=== PATIENT | male | born 1945 | race Caucasian/White ===

== ENCOUNTER 2024-06-09 04:45 | Day surgery (SDC) | payer OTHER ==
[2024-05-06 14:44] VITALS: BMI 25.0
[2024-06-09 10:33] VITALS: TEMP 98.1
[2024-06-09 14:15] VITALS: BP 150/71; PULSE 58; RESP 18
== END 2024-06-09 13:30 | disposition home or self-care (01) ==
LOC: JASU-ENDO 04:45
PROVIDERS: ATTEND Internal Medicine Gastroenterology
PROC: 0DB78ZX Excision of Stomach, Pylorus, Via Natural or Artificial Opening Endoscopic, Diagnostic (ICD-10-PCS; 2024-06-09)
PROC: 0DJ08ZZ Inspection of Upper Intestinal Tract, Via Natural or Artificial Opening Endoscopic (ICD-10-PCS; 2024-06-09)
PROC: 0DB68ZX Excision of Stomach, Via Natural or Artificial Opening Endoscopic, Diagnostic (ICD-10-PCS; principal; 2024-06-09 12:00)
DX: C16.3 Malignant neoplasm of pyloric antrum (principal); K31.A22 Gastric intestinal metaplasia with high grade dysplasia; K29.50 Unspecified chronic gastritis without bleeding; K25.9 Gastric ulcer, unspecified as acute or chronic, without hemorrhage or perforation; K44.9 Diaphragmatic hernia without obstruction or gangrene; I10 Essential (primary) hypertension; E11.9 Type 2 diabetes mellitus without complications
CPT/HCPCS: 82962; 88305-TC; 88341-TC; 88342-TC

== ENCOUNTER 2024-06-23 04:19 | Day surgery (SDC) | payer OTHER ==
[2024-06-22 11:19] VITALS: BMI 25.0
[2024-06-23] MEDS ORDERED: BUPIVACAINE HCL/PF 0.25% (2.5MG/ML) 10 ML VIAL ONE (09:37)
[2024-06-23] MEDS ORDERED: PROPOFOL 20 ML ONE (09:47)
[2024-06-23] MEDS ORDERED: ROCURONIUM BROMIDE 50 MG/5 ML SYRINGE ONE (09:48)
[2024-06-23] MEDS ORDERED: ceFAZolin SODIUM 1 GM VIAL ONE (10:11)
[2024-06-23] MEDS: ceFAZolin SODIUM 1 GM VIAL IVPB ONE ×2 (10:13)
[2024-06-23] MEDS: BUPIVACAINE HCL/PF 0.25% (2.5MG/ML) 10 ML VIAL IJ ONE ×2 (10:23)
[2024-06-23] MEDS ORDERED: SUGAMMADEX SODIUM 200 MG/2 ML VIAL ONE (11:09)
[2024-06-23] MEDS ORDERED: ONDANSETRON 4 MG/2 ML VIAL ONE (11:09)
[2024-06-23] MEDS ORDERED: ONDANSETRON 4 MG/2 ML VIAL IVPUSH PRN (12:28)
[2024-06-23] MEDS ORDERED: LACTATED RINGERS SOLUTION 1,000 ML IV SCH (12:30)
[2024-06-23 14:06] VITALS: BP 130/70; PULSE 70; RESP 16; TEMP 97.7
== END 2024-06-23 14:12 | disposition home or self-care (01) ==
LOC: JASU-SURG 04:19
PROVIDERS: ATTEND Surgery
PROC: 3E1M48X Irrigation of Peritoneal Cavity using Irrigating Substance, Percutaneous Endoscopic Approach, Diagnostic (ICD-10-PCS; principal; 2024-06-23 10:30)
DX: C16.9 Malignant neoplasm of stomach, unspecified (principal)
CPT/HCPCS: 82962; 86850; 86900; 86901; 88108; 88305-TC; 94760

== ENCOUNTER 2024-07-07 03:53 | Inpatient (IN) | payer OTHER ==
[2024-07-07] MEDS ORDERED: ROCURONIUM BROMIDE 50 MG/5 ML SYRINGE ONE ×3 (10:39→16:41)
[2024-07-07] MEDS ORDERED: MIDAZOLAM HCL 2 MG/2 ML SINGLE DOSE VIAL ONE (10:40)
[2024-07-07] MEDS ORDERED: PROPOFOL 20 ML ONE (10:40)
[2024-07-07] MEDS ORDERED: SUCCINYLCHOLINE CHLORIDE 200 MG/10 ML SYRINGE ONE (10:40)
[2024-07-07] MEDS ORDERED: BUPIVACAINE HCL/PF 0.25% (2.5MG/ML) 10 ML VIAL ONE (10:42)
[2024-07-07 11:52] LABS: ARTERIAL BLD GAS O2 SATURATION 96.4 % (95-98); ARTERIAL BLOOD GAS BASE EXCESS 0.2 mmol/L (-2-2); ARTERIAL BLOOD GAS PO2 82.6 mmHg (80-100); ARTERIAL BLOOD GAS pH 7.421 (7.350-7.450)
[2024-07-07] MEDS ORDERED: cefOXitin SODIUM 2 GM VIAL (RESTRICTED TO ID) IVPB ONE ×2 (12:20→16:15)
[2024-07-07] MEDS ORDERED: HEPARIN NA (PORCINE) 5,000 UNITS/ML 1ML VIAL ONE (12:20)
[2024-07-07] MEDS: cefoTEtan DISODIUM 2 GM VIAL (RESTRICTED TO ID) IVPB ONE ×2 (12:24→16:24)
[2024-07-07] MEDS ORDERED: PHENYLEPHRINE HCL 10 MG/1 ML SINGLE DOSE VIAL ONE (12:35)
[2024-07-07] MEDS: BUPIVACAINE HCL/PF 0.25% (2.5MG/ML) 10 ML VIAL IJ ONE (12:36)
[2024-07-07] MEDS: cefOXitin SODIUM 1 GM VIAL (RESTRICTED TO ID) IVPB ONE (16:24)
[2024-07-07] MEDS ORDERED: HYDROmorphone HCl 2 MG/ML VIAL ONE (16:35)
[2024-07-07] MEDS ORDERED: TRANEXAMIC ACID 1000 MG/10 ML VIAL ONE (18:09)
[2024-07-07] MEDS ORDERED: NEOSTIGMINE METHYLSULFATE 0.5 MG/1 ML - 10 ML MDV ONE (20:37)
[2024-07-07] MEDS ORDERED: ONDANSETRON 4 MG/2 ML VIAL IVPUSH PRN (21:31)
[2024-07-07] MEDS: ACETAMINOPHEN 1000 MG/100 ML BAG IVPB ONE (21:40)
[2024-07-07] MEDS: ACETAMINOPHEN 1000 MG/100 ML BAG IVPB SCH (21:41)
[2024-07-07] MEDS ORDERED: METOCLOPRAMIDE HCL INJECTION 10 MG/2 ML VIAL ONE (22:02)
[2024-07-07] MEDS ORDERED: ONDANSETRON 4 MG/2 ML VIAL ONE (22:02)
[2024-07-07] MEDS: ONDANSETRON 4 MG/2 ML VIAL IVPUSH SCH (22:07)
[2024-07-07] MEDS: METOCLOPRAMIDE HCL INJECTION 10 MG/2 ML VIAL IVPUSH SCH (22:07)
[2024-07-07] MEDS: ATORVASTATIN CA 10 MG TABLET (FP) PO SCH (22:09)
[2024-07-07] MEDS: LACTATED RINGERS SOLUTION 1,000 ML IV SCH (22:09)
[2024-07-07] MEDS: INSULIN ASPART SLIDING SCALE (NOVOLOG) 1 VIAL SQ SCH (22:14)
[2024-07-08] MEDS: SIMETHICONE 80 MG TAB.CHEW (FP) PO PRN (01:18)
[2024-07-08] MEDS: CEFOXITIN SODIUM 2 GM in DEXTROSE 5%-WATER 100 ML IVPB SCH (01:18)
[2024-07-08] MEDS: TRANEXAMIC ACID 1000 MG/10 ML VIAL IVPUSH ONE (02:06)
[2024-07-08] MEDS: TRANEXAMIC ACID 1000 MG/10 ML VIAL IVPB SCH (02:07)
[2024-07-08] MEDS: oxyCODONE HCL 5 MG TABLET PO PRN ×3 (05:33→20:39)
[2024-07-08 09:31] LABS: BASO % 0.2 % (0-2.0); HEMATOCRIT 30.8 % (35.4-49); HEMOGLOBIN 10.1 GM/dL (11.7-16.9); LYMPH % 5.8 % (8-40); MCH 28.7 pg (25.7-33.7); MCHC 32.8 g/dl (32.0-35.9); MEAN CELL VOLUME 87.5 fl (80-96); MEAN PLT VOLUME 7.9 fl (7.5-11.1); PLATELET COUNT 183 10^3/uL (134-434); RBC 3.51 M/mm3 (4.00-5.60); RDW 15.6 % (11.9-15.9)
[2024-07-08 09:50] LABS: POTASSIUM 3.9 mmol/L (3.5-5.1)
[2024-07-08] MEDS: HEPARIN NA (PORCINE) 5,000 UNITS/ML 1ML VIAL SQ SCH (10:05)
[2024-07-08 10:13] LABS: BLOOD UREA NITROGEN 16.1 mg/dL (7-18); CALCIUM 8.2 mg/dL (8.5-10.1)
[2024-07-08] MEDS: PANTOPRAZOLE 40 MG TABLET PO SCH (10:17)
[2024-07-08] MEDS: LOSARTAN POTASSIUM 50 MG TABLET PO SCH (10:17)
[2024-07-08] MEDS: ACETAMINOPHEN 500 MG TABLET (FP) PO SCH (22:51)
[2024-07-09] MEDS: ENOXAPARIN NA (PORCINE) 40 MG/0.4 ML DISP.SYRIN SQ SCH (09:46)
[2024-07-09 10:06] LABS: BASO % 0.1 % (0-2.0); HEMOGLOBIN 11.4 GM/dL (11.7-16.9); LYMPH % 5.6 % (8-40); MCH 28.8 pg (25.7-33.7); MCHC 33.5 g/dl (32.0-35.9); MEAN CELL VOLUME 86.1 fl (80-96); MONO % 6.8 % (3.8-10.2); NEUT % 87.5 % (42.8-82.8); PLATELET COUNT 204 10^3/uL (134-434); RBC 3.95 M/mm3 (4.00-5.60); RDW 15.9 % (11.9-15.9); WHITE BLOOD COUNT 12.6 K/mm3 (4.0-10.0)
[2024-07-09 10:31] LABS: POTASSIUM 3.8 mmol/L (3.5-5.1)
[2024-07-09 10:52] LABS: CALCIUM 8.1 mg/dL (8.5-10.1)
[2024-07-09 10:53] LABS: BLOOD UREA NITROGEN 12.6 mg/dL (7-18); MAGNESIUM 1.6 mg/dL (1.8-2.4)
[2024-07-09] MEDS: oxyCODONE HCL 5 MG TABLET PO PRN (10:55)
[2024-07-09 10:56] LABS: CREATININE 1.1 mg/dL (0.55-1.3)
[2024-07-09] MEDS: LOSARTAN POTASSIUM 50 MG TABLET PO ONE ×2 (14:01→22:12)
[2024-07-09 15:28] VITALS: BMI 26.1
[2024-07-09] MEDS: METOCLOPRAMIDE HCL 10 MG TABLET (FP) PO SCH (17:33)
[2024-07-09] MEDS: MAGNESIUM OXIDE 400 MG TABLET (FP) PO SCH (19:43)
[2024-07-09] MEDS: MAGNESIUM OXIDE 400 MG TABLET (FP) PO ONE (20:11)
[2024-07-09] MEDS: ONDANSETRON *ODT* 4 MG TABLET SL SCH (20:11)
[2024-07-10] MEDS: hydrALAZINE HCL 10 MG TABLET PO ONE ×2 (04:42→14:15)
[2024-07-10 08:46] LABS: BASO % 0.3 % (0-2.0); EOS % 0.1 % (0-4.5); HEMATOCRIT 36.2 % (35.4-49); HEMOGLOBIN 11.9 GM/dL (11.7-16.9); LYMPH % 6.7 % (8-40); MCH 28.5 pg (25.7-33.7); MCHC 32.8 g/dl (32.0-35.9); MEAN CELL VOLUME 86.9 fl (80-96); MEAN PLT VOLUME 7.4 fl (7.5-11.1); MONO % 8.2 % (3.8-10.2); NEUT % 84.7 % (42.8-82.8); PLATELET COUNT 219 10^3/uL (134-434); RBC 4.16 M/mm3 (4.00-5.60); RDW 15.6 % (11.9-15.9); WHITE BLOOD COUNT 14.8 K/mm3 (4.0-10.0)
[2024-07-10] MEDS: LOSARTAN POTASSIUM 50 MG TABLET PO SCH (09:40)
[2024-07-10 09:58] LABS: POTASSIUM 3.6 mmol/L (3.5-5.1)
[2024-07-10 10:08] LABS: CALCIUM 8.5 mg/dL (8.5-10.1)
[2024-07-10 10:09] LABS: BLOOD UREA NITROGEN 13.8 mg/dL (7-18)
[2024-07-10 21:42] VITALS: RESP 18
[2024-07-11 08:48] LABS: BASO % 0.2 % (0-2.0); EOS % 0.7 % (0-4.5); HEMATOCRIT 35.1 % (35.4-49); HEMOGLOBIN 11.7 GM/dL (11.7-16.9); LYMPH % 6.8 % (8-40); MCH 28.9 pg (25.7-33.7); MCHC 33.4 g/dl (32.0-35.9); MEAN CELL VOLUME 86.4 fl (80-96); MEAN PLT VOLUME 7.8 fl (7.5-11.1); MONO % 12.2 % (3.8-10.2); NEUT % 80.1 % (42.8-82.8); PLATELET COUNT 233 10^3/uL (134-434); RBC 4.07 M/mm3 (4.00-5.60); RDW 15.9 % (11.9-15.9); WHITE BLOOD COUNT 11.2 K/mm3 (4.0-10.0)
[2024-07-11 09:06] LABS: POTASSIUM 3.6 mmol/L (3.5-5.1)
[2024-07-11 09:08] LABS: CALCIUM 7.8 mg/dL (8.5-10.1)
[2024-07-11 09:09] LABS: BLOOD UREA NITROGEN 15.9 mg/dL (7-18); MAGNESIUM 2.1 mg/dL (1.8-2.4)
[2024-07-12 06:57] VITALS: BP 141/60; PULSE 73; TEMP 73
[2024-07-12 09:15] LABS: BASO % 0.4 % (0-2.0); EOS % 1.2 % (0-4.5); HEMATOCRIT 33.9 % (35.4-49); HEMOGLOBIN 11.4 GM/dL (11.7-16.9); LYMPH % 11.5 % (8-40); MCH 28.7 pg (25.7-33.7); MCHC 33.5 g/dl (32.0-35.9); MEAN CELL VOLUME 85.8 fl (80-96); MEAN PLT VOLUME 7.5 fl (7.5-11.1); MONO % 15.1 % (3.8-10.2); NEUT % 71.8 % (42.8-82.8); PLATELET COUNT 244 10^3/uL (134-434); RBC 3.95 M/mm3 (4.00-5.60); RDW 15.6 % (11.9-15.9); WHITE BLOOD COUNT 8.7 K/mm3 (4.0-10.0)
[2024-07-12 09:44] LABS: POTASSIUM 3.4 mmol/L (3.5-5.1)
[2024-07-12 09:46] LABS: CALCIUM 8.1 mg/dL (8.5-10.1)
== END 2024-07-12 14:16 | disposition home or self-care (01) | DRG 328 ==
LOC: J2C 03:53 → J8W 23:14
PROVIDERS: ADMIT Internal Medicine; ATTEND Nurse Practitioner Acute Care
PROC: 0DBU4ZZ Excision of Omentum, Percutaneous Endoscopic Approach (ICD-10-PCS; 2024-07-07)
PROC: 0D164ZA Bypass Stomach to Jejunum, Percutaneous Endoscopic Approach (ICD-10-PCS; 2024-07-07)
PROC: 8E0W4CZ Robotic Assisted Procedure of Trunk Region, Percutaneous Endoscopic Approach (ICD-10-PCS; 2024-07-07)
PROC: 0DB64ZZ Excision of Stomach, Percutaneous Endoscopic Approach (ICD-10-PCS; principal; 2024-07-07 11:00)
DX: C16.9 Malignant neoplasm of stomach, unspecified (principal); E11.9 Type 2 diabetes mellitus without complications; I10 Essential (primary) hypertension; E78.5 Hyperlipidemia, unspecified; D50.9 Iron deficiency anemia, unspecified
CPT/HCPCS: 36415; 36600; 80048; 82803; 82962; 83735; 85025; 86140; 86850; 86900; 86901; 88305-TC; 88309-TC; 88341-TC; 88342-TC; 94760; 97116-GP; 97161-GP; J0131; J1644; Q0162